=== PATIENT | male | born 1955 | race Caucasian/White ===

== ENCOUNTER 2019-07-27 07:18 | Emergency (ER) | payer MEDICARE ==
[~2019-07-27] VITALS: Ht 172.7 cm; Wt 91.9 kg
[2019-07-27] MEDS ORDERED: OMEP20TA62 PO (07:34)
[2019-07-27] MEDS ORDERED: LISI5TAB7 PO (07:34)
[2019-07-27] MEDS ORDERED: BIMA2.5D OP (07:34)
[2019-07-27] MEDS ORDERED: PARO20TA98 PO (07:34)
[2019-07-27] MEDS ORDERED: TERA2CAP3 PO (07:34)
[2019-07-27] MEDS ORDERED: ATEN50TA41 PO (07:34)
--- NOTE | 2019-07-27 07:58 | NUR ---
PT UPRIGHT ON GURNEY AWAKE & CALM, RESPONDS APPROP TO STAFF, C/O PAIN- ERP AT BS, COMFORT MEASURES PROVIDED, CALL LIGHT WITHIN REACH.
[2019-07-27 08:03] LABS: MICROSCOPIC NOT IND
[2019-07-27 08:10] LABS: CULTURE INDICATED? NO
[2019-07-27 08:35] LABS: BASOPHILS # (AUTO) 0.03 x10^3/uL (0-0.1); BASOPHILS % (AUTO) 0 % (0-1); EOSINOPHILS # (AUTO) 0.06 x10^3/uL (0-0.4); EOSINOPHILS % (AUTO) 1 % (1-7); LYMPHOCYTES # (AUTO) 1.34 x10^3/uL (1-3.4); LYMPHOCYTES % (AUTO) 22 % (22-44); MD NO; MEAN CORPUSCULAR HEMOGLOBIN 30.4 pg (27.5-34.5); MEAN CORPUSCULAR HGB CONC 33.1 g/dL (33.2-36.2); MEAN CORPUSCULAR VOLUME 91.8 fL (81-97); MEAN PLATELET VOLUME 7.2 fL (7.4-10.4); MONOCYTES # (AUTO) 0.28 x10^3/uL (0.2-0.8); MONOCYTES % (AUTO) 5 % (2-9); NEUTROPHILS # (AUTO) 4.44 x10^3/uL (1.8-6.8); NEUTROPHILS % (AUTO) 72 % (42-75); PLATELET COUNT 233 x10^3/uL (130-400); RED BLOOD COUNT 4.94 x10^6/uL (4.38-5.82); RED CELL DISTRIBUTION WIDTH 13.8 % (9.4-14.8)
[2019-07-27 08:47] LABS: ALANINE AMINOTRANSFERASE 24 U/L (12-78); ALBUMIN 3.5 g/dL (3.4-5.0); ANION GAP 7 mmol/L (5-15); CALCIUM 8.8 mg/dL (8.5-10.1); CHLORIDE 106 mmol/L (98-107); CREATININE 0.96 mg/dL (0.7-1.3)
[2019-07-27 08:50] LABS: ALKALINE PHOSPHATASE 64 U/L (45-117); BILIRUBIN,TOTAL 0.3 mg/dL (0.2-1.0); TOTAL PROTEIN 7.1 g/dL (6.4-8.2)
--- NOTE | 2019-07-27 08:50 | NUR ---
PT TO CT
--- NOTE | 2019-07-27 09:10 | NUR ---
PT RETURNED FROM CT, LAYING ON GURNEY AWAKE & CALM, RESPONDS APPROP TO STAFF, COMFORT MEASURES PROVIDED, CALL LIGHT WITHIN REACH.
--- NOTE | 2019-07-27 10:01 | NUR ---
PT UPRIGHT ON GURNEY WITH EYES CLOSED, ABLE TO DOZE OFF RESPONDS APPROP TO STAFF WITH VERBAL STIMULI, COMFORT MEASURES PROVIDED, CALL LIGHT WITHIN REACH.
[2019-07-27 11:01] VITALS: BP 141/72
--- NOTE | 2019-07-27 11:01 | NUR ---
PT REMAINS UPRIGHT ON GURNEY WITH EYES CLOSED, ABLE TO DOZE OFF, RESPONDS APPROP TO STAFF WITH VERBAL STIMULI, COMFORT MEASURES PROVIDED, CALL LIGHT WITHIN REACH.
--- NOTE | 2019-07-27 11:31 | NUR ---
Patient given discharge instructions and Rx, they have confirmed that they understand the instructions. Patient ambulatory with steady gait.
[2019-07-27] MEDS ORDERED: OMNIPAQUE 350 MG/ML, 100ML BOTTLE ONE (12:12)
== END 2019-07-27 11:32 | disposition home or self-care (01) ==
LOC: ED 11:24
DX: K92.2 Gastrointestinal hemorrhage, unspecified (principal); I10 Essential (primary) hypertension; K21.9 Gastro-esophageal reflux disease without esophagitis; J45.909 Unspecified asthma, uncomplicated
CPT/HCPCS: 36415; 74177; 80053; 81003; 83690; 85025; 99284; Q9967

== ENCOUNTER 2021-01-30 18:28 | Emergency (ER) | payer MEDICARE ==
[~2021-01-30] VITALS: Ht 172.7 cm; Wt 94.5 kg
[~2021-01-30 18:28] MED LIST: ATEN50TA41 PO; BIMA2.5D OP; LISI5TAB7 PO; OMEP20TA62 PO; PARO20TA98 PO; TERA2CAP3 PO
[2021-01-30 18:38] VITALS: BP 168/94
[2021-01-30] MEDS ORDERED: NEOSPORIN OINT. PKT 1 PACKET ONE (20:16)
[2021-01-30] MEDS ORDERED: LISINOPRIL 20 MG TABLET ONE (20:30)
[2021-01-30] MEDS ORDERED: LISINOPRIL 20 MG TABLET PO ONE (20:30)
== END 2021-01-30 20:45 | disposition home or self-care (01) ==
LOC: ED 19:00
DX: S90.812A Abrasion, left foot, initial encounter (principal); I10 Essential (primary) hypertension; Z76.0 Encounter for issue of repeat prescription; L97.529 Non-pressure chronic ulcer of other part of left foot with unspecified severity; K21.9 Gastro-esophageal reflux disease without esophagitis; J45.909 Unspecified asthma, uncomplicated; X58.XXXA Exposure to other specified factors, initial encounter; Y93.89 Activity, other specified; Y92.89 Other specified places as the place of occurrence of the external cause; Y99.8 Other external cause status
CPT/HCPCS: 99283